=== PATIENT | male | born 1965 | race Caucasian/White ===

== ENCOUNTER 2017-10-19 13:01 | Day surgery (SDC) | payer OTHER ==
[2017-10-19] MEDS: NS 1,000 ML IV (13:25)
[2017-10-19] MEDS ORDERED: LIDOCAINE 2% INJ 100 MG/5 ML SDV (FOR ANES.) As Ordered (14:19)
[2017-10-19] MEDS ORDERED: PROPOFOL 200 MG/20 ML VIAL As Ordered (14:19)
== END 2017-10-19 15:17 | disposition home or self-care (01) ==
LOC: M OPP 13:01
DX: Z12.11 Encounter for screening for malignant neoplasm of colon (principal); D12.3 Benign neoplasm of transverse colon; D12.0 Benign neoplasm of cecum; D12.5 Benign neoplasm of sigmoid colon; K62.1 Rectal polyp; K57.30 Diverticulosis of large intestine without perforation or abscess without bleeding; M51.9 Unspecified thoracic, thoracolumbar and lumbosacral intervertebral disc disorder; G47.8 Other sleep disorders; R06.83 Snoring; G47.30 Sleep apnea, unspecified; Z88.2 Allergy status to sulfonamides
CPT/HCPCS: 45385

== ENCOUNTER → 2020-12-21 | Outpatient (CLI) | payer OTHER ==
[~2020-12-21] MED LIST: VITA200016 PO
--- NOTE | 2020-12-21 09:14 | REP ---
INDICATION: CHEST PAIN,UNSPECIFIED/ US 1ST COMPARISON: None. TECHNIQUE: PA and lateral. FINDINGS: The mediastinum and cardiac silhouette are normal. The lung song are clear and without acute consolidation, effusion, or pneumothorax. The skeletal structures are intact and normal. IMPRESSION: No acute cardiopulmonary process. <Electronically signed by Mehul Rivera > 12/21/20 0911
--- NOTE | 2020-12-21 09:50 | REP ---
INDICATION: RIGHT UPPER QUADRANT PAIN / XRAY AFTER COMPARISON: None. TECHNIQUE: Real time horne scale ultrasound examination using curved array transducer. FINDINGS: Liver is hyperechoic with poor through transmission suggesting fatty infiltration. Pancreas is incompletely evaluated due to interposed bowel gas. The gallbladder is surgically absent. No biliary ductal dilatation is appreciated and the common bile duct measures 4.3 mm diameter. Right kidney is normal in reniform shape without hydronephrosis and measures 11.3 x 4.0 x 4.8 cm. No ascites in the visualized right upper quadrant. IMPRESSION: Hepatosteatosis suggested. <Electronically signed by Mehul Rivera > 12/21/20 0994
== END ==
LOC: M RAD 08:46
PROVIDERS: ATTEND Physician Assistant Medical
DX: R10.11 Right upper quadrant pain (principal); R07.9 Chest pain, unspecified

== ENCOUNTER 2021-01-08 10:04 | Day surgery (SDC) | payer OTHER ==
[~2021-01-08] VITALS: Ht 180.3 cm; Wt 105.1 kg
[~2021-01-08 10:04] MED LIST changes: +D31000TA2 PO; +LIDOCAINE 2% 100MG/5ML SDV (FOR ANES.) As Ordered ONE; +MULT-40 PO; +NS 1,000 ML IV ONE; +ZINC1TAB2 PO; +propofoL 200 MG/20 ML VIAL As Ordered ONE
--- NOTE | 2021-01-08 12:04 | ROOR ---
Patient Name: Nitin Ross Procedure Date: 01/08/2021 11:35 AM Date of : 1965 Age: 55 Room: [facility] Gender: Male Note Status: Finalized Procedure: Colonoscopy Indications: High risk colon cancer surveillance: Personal history of colonic polyps, Last colonoscopy: October 2017, Incidental Right upper/lower abdominal pain noted Providers: Sourav PINEDA MD Referring MD: BRIGITTE BRIGGS MD Requesting Provider: Medicines: Monitored Anesthesia Care Complications: No immediate complications. Procedure: Pre-Anesthesia Assessment: - The heart rate, respiratory rate, oxygen saturations, blood pressure, adequacy of pulmonary ventilation, and response to care were monitored throughout the procedure. The Colonoscope was introduced through the anus and advanced to 10 cm into the ileum. The colonoscopy was performed without difficulty. The patient tolerated the procedure well. The quality of the bowel preparation was good. Findings: The perianal and digital rectal examinations were normal. Two sessile polyps were found in the proximal ascending colon and ileocecal valve. The polyps were diminutive in size. These polyps were removed with a cold snare. Resection and retrieval were complete. Multiple medium-mouthed diverticula were found in the sigmoid colon and descending colon. Small Internal Hemorrhoids. The exam was otherwise normal throughout the examined colon. The terminal ileum appeared normal. Impression: - Two diminutive polyps in the proximal ascending colon and at the ileocecal valve, removed with a cold snare. Resected and retrieved. - Diverticulosis in the sigmoid colon and in the descending colon. - Small Internal Hemorrhoids. - The rest of the colon and examined portion of the ileum are otherwise normal. Recommendation: - Repeat colonoscopy in 5 years for surveillance. Procedure Code(s): --- Professional --- 85899, Colonoscopy, flexible; with removal of tumor(s), polyp(s), or other lesion(s) by snare technique Diagnosis Code(s): --- Professional --- K57.30, Diverticulosis of large intestine without perforation or abscess without bleeding K63.5, Polyp of colon Z86.010, Personal history of colonic polyps CPT copyright 2019 [employer]. All rights reserved. The codes documented in this report are preliminary and upon rough rounder review may be revised to meet current compliance requirements. Sourav Pineda MD Sourav PINEDA MD 01/08/2021 12:03:44 PM Electronically signed by Sourav PINEDA MD Number of Addenda: 0 Note Initiated On: 01/08/2021 11:35 AM Estimated Blood Loss: Estimated blood loss: none.
[2021-01-08 12:30] VITALS: BP 127/86
== END 2021-01-08 12:40 | disposition home or self-care (01) ==
LOC: M OPP 10:04
PROVIDERS: ATTEND Internal Medicine Gastroenterology
DX: Z12.11 Encounter for screening for malignant neoplasm of colon (principal); Z86.010 Personal history of colon polyps; K57.30 Diverticulosis of large intestine without perforation or abscess without bleeding; D12.0 Benign neoplasm of cecum; D12.1 Benign neoplasm of appendix; K64.8 Other hemorrhoids; Z88.2 Allergy status to sulfonamides